=== PATIENT | female | born 1975 | race Caucasian/White ===

== ENCOUNTER 2019-08-08 05:33 | Emergency (ER) | payer MEDICAID ==
[~2019-08-08] VITALS: Ht 165.1 cm; Wt 95.3 kg
--- NOTE | 2019-08-08 05:33 | NUR ---
JULIANNE GASPAR, PREBOOK. TAKEN TO CHAIR C
[2019-08-08 05:37] VITALS: BP 142/97
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
--- NOTE | 2019-08-08 05:49 | NUR ---
PATIENT BIB [place] [employer]. PATIENT EXAMINED BY DR. KONG. PATIENT MEDICALLY CLEARED AND RELEASED IN CUSTODY IN STABLE CONDITION. ORIGINAL PRE-BOOK FORM GIVEN TO OFFICER DARREN.
[2019-08-08 05:50] VITALS: BP 142/97
== END 2019-08-08 05:49 ==
LOC: MED 05:33
DX: G51.0 Bell's palsy (principal); I10 Essential (primary) hypertension; Z02.89 Encounter for other administrative examinations
CPT/HCPCS: 99283